=== PATIENT | male | born 1970 ===

== ENCOUNTER 2018-04-13 05:30 | Day surgery (SDC) | payer OTHER ==
[2018-04-13] VITALS (10 sets, daily range): BP systolic 66–154; BP diastolic 34–91; PULSE 39–86; TEMP 97.5–98.2
[~2018-04-13] VITALS: Ht 188 cm; Wt 109.1 kg
[2018-04-13] MEDS ORDERED: PRISTIQ25 MG PO (06:38)
[2018-04-13] MEDS ORDERED: ZANTAC 150MG T150 MG PO (06:38)
--- NOTE | 2018-04-13 10:19 | NUR ---
Patient returns to room 8 per cart and is pale and diaphoretic. Complains of nausea. Placed on oxygen at 3L per nasal cannula. Patient complains of being hot and warm blankets removed. Ray Gamboa SENIOR ADVOCATE call re: patients low blood pressure and pulse. SENIOR ADVOCATE in room and given 0.2mg Robinul. Head of cart lowered and IV fluids infusing at rapid rate. RN and SENIOR ADVOCATE remain with the patient.
--- NOTE | 2018-04-13 10:21 | NUR ---
States nausea has resolved. Remains awake and talking with nurses. Becoming less pale and complains of being thirsty.
--- NOTE | 2018-04-13 10:25 | NUR ---
IV fluids at 150cc/hr and taking ice chips. Head of cart elevated 30 degrees. Taking ice chips. Allowed to rest. Spouse in room and siderails up x2.
--- NOTE | 2018-04-13 10:35 | NUR ---
Resting with eyes closed. IV fluids infusing at 150cc/hr. Oxygen down to 2L per nasal cannula.
[2018-04-13] MEDS ORDERED: ROXICODONE 55 MG/TAB PO (10:47)
[2018-04-13] MEDS ORDERED: TYLENOL 500MG500 MG PO (10:48)
--- NOTE | 2018-04-13 10:50 | NUR ---
Arouses easily and taking water. No further nausea.
--- NOTE | 2018-04-13 11:00 | NUR ---
Drinking Sprite dose of extra strength Tylenol given as ordered.
--- NOTE | 2018-04-13 11:05 | NUR ---
Resting with eyes closed. Spouse remains in room.
--- NOTE | 2018-04-13 11:35 | NUR ---
Awake and talking with spouse. Continues to drink water. Denies pain or nausea. Scrotal support has remained in place and minimal rectal drainage noted.
--- NOTE | 2018-04-13 12:05 | NUR ---
Patient is eating crackers and peanut butter and drinking water.
--- NOTE | 2018-04-13 12:45 | NUR ---
Assisted up to the bathroom and is able to void. Tolerates activity well and states that he does feel slightly light headed. Denies nausea and pain. Bandaids on abdomen dry.
--- NOTE | 2018-04-13 13:30 | NUR ---
IV discontinued and given dismissal instructions. Voices understanding of these. Provided scripts for OXycodone and instructed to take Extra strength tylenol 1000mg q6hr [id number] the prn. Patient dresses self.
--- NOTE | 2018-04-13 13:55 | NUR ---
Patient dismissed to home per private vehicle driven by spouse and taken to the front door per wheelchair by RN and assisted into vehicle.
== END 2018-04-13 13:55 | disposition home or self-care (01) ==
LOC: SDCO 05:30
DX: K40.20 Bilateral inguinal hernia, without obstruction or gangrene, not specified as recurrent (principal); K64.8 Other hemorrhoids; E78.00 Pure hypercholesterolemia, unspecified; G47.33 Obstructive sleep apnea (adult) (pediatric); K21.9 Gastro-esophageal reflux disease without esophagitis
CPT/HCPCS: A4314; C1781; J0690; J1100; J1200; J1885; J2405; J2704; J7120

== ENCOUNTER 2019-02-20 07:22 | Day surgery (SDC) | payer OTHER ==
[2019-02-20] VITALS (8 sets, daily range): BP systolic 89–138; BP diastolic 50–86; PULSE 49–75; TEMP 97.1–97.8
[~2019-02-20] VITALS: Ht 188 cm; Wt 105.3 kg
[~2019-02-20 07:22] MED LIST: PRISTIQ25 MG PO; ROXICODONE 55 MG/TAB PO; TYLENOL 500MG500 MG PO; ZANTAC 150MG T150 MG PO
[2019-02-20] MEDS ORDERED: LIDO2%JEL30 RC (12:52)
--- NOTE | 2019-02-20 13:30 | NUR ---
Patient returns to room 3 per cart from PACU and is alert and oriented x3. IV fluids infusing. 4x4 gauze dressing dry over the rectal area and mesh panties in place. Spouse in room. Taking sips of water. Temp 97.2 and room air sats 98%. Call light in reach.
--- NOTE | 2019-02-20 13:43 | NUR ---
Pale and diaphoretic. States that he is not feeling good. IV fluids infusing wide open. Patient placed in trendelenburg position. Remains awake and talking. Cool cloth on forehead.
--- NOTE | 2019-02-20 13:45 | NUR ---
States that he is having rectal discomfort. Medicated with Tylenol 650mg po.
--- NOTE | 2019-02-20 14:00 | NUR ---
Head of bed elevated 30 degrees. Talking with spouse.
--- NOTE | 2019-02-20 14:15 | NUR ---
Taking sips of water and Sprite. IV fluids continue to infuse.
--- NOTE | 2019-02-20 14:17 | NUR ---
States that he is having increasing rectal pain. Medicated with [place] 5mg one tab and is eating crackers.
--- NOTE | 2019-02-20 14:30 | NUR ---
IV fluids infusing. Drinking coffee.
--- NOTE | 2019-02-20 14:45 | NUR ---
Assisted up to the bathroom. Gait steady. Unable to void and returns to room.
--- NOTE | 2019-02-20 15:12 | NUR ---
Patient states that he wants to go home. Dr. Colon notified and patient may be discharged to home without voiding.
--- NOTE | 2019-02-20 15:20 | NUR ---
Given dismissal instructions and and voices understanding of these. 4x4 gauze dressing remains dry to rectal area. IV discontinued and site is free of redness.
--- NOTE | 2019-02-20 15:30 | NUR ---
Patient dismissed to home per private vehicle driven by spouse and taken to the front door per wheelchair and assisted into car by RN with instructions in hand.
== END 2019-02-20 15:30 | disposition home or self-care (01) ==
LOC: SDCO 07:22
DX: Z12.11 Encounter for screening for malignant neoplasm of colon (principal); D12.5 Benign neoplasm of sigmoid colon; K64.8 Other hemorrhoids; Z80.0 Family history of malignant neoplasm of digestive organs; E78.00 Pure hypercholesterolemia, unspecified; G47.00 Insomnia, unspecified; G47.33 Obstructive sleep apnea (adult) (pediatric); K21.9 Gastro-esophageal reflux disease without esophagitis; F32.9 Major depressive disorder, single episode, unspecified
CPT/HCPCS: J1100; J2250; J2405; J2704; J3010; J7120